=== PATIENT | female | born 1955 | race Caucasian/White ===

== ENCOUNTER → 2025-02-16 13:13 | Outpatient (REF) | payer MEDICARE, SELFPAY ==
[2025-02-16 13:15] LABS: Glucose 108 mg/dl (70-99)
== END ==
LOC: PET 13:13
PROVIDERS: ATTENDING PHYSICIAN Internal Medicine Critical Care Medicine
DX: R91.1 Solitary pulmonary nodule (principal); Z01.818 Encounter for other preprocedural examination
CPT/HCPCS: 36415; 82947